=== PATIENT | male | born 1960 | race African-American/Black ===

== ENCOUNTER 2018-09-12 08:46 | Inpatient (IN) | payer MEDICAID ==
[~2018-09-12] VITALS: Ht 182.9 cm; Wt 102.5 kg
[~2018-09-12 08:46] MED LIST: BENA20TA10 PO; DIPH25CA83 PO; EMTR1TAB11 PO; ETRA200T PO; FOLI-43 PO; GABA600T PO; ISENTRESS PO; MEGE400O PO; MIRT15TA6 PO; NORVIR PO; OLAN10TA19 PO; PREZISTA PO; RALT400T PO; RISP2TAB22 PO; RITO100T PO; THIA100T75 PO; TRUVADA PO
[2018-09-12] MEDS ORDERED: MORPHINE SULFATE 4 MG/ML CPJ (NOT FOR IM USE) IV STA (09:31)
[2018-09-12 09:59] LABS: BASOPHILS % 0.3 % (0.0-2.0); EOSINOPHILS % 0.1 % (0.0-5.0); HEMATOCRIT. 38.8 % (42.0-52.0); HEMOGLOBIN. 13.4 g/dL (14.0-18.0); LYMPHOCYTES % 9.9 % (20.0-50.0); MEAN CORPUSCULAR HEMOGLOBIN 32.1 pg (28.0-32.0); MEAN CORPUSCULAR VOLUME 92.7 fL (80.0-94.0); MEAN PLATELET VOLUME 7.1 fl (7.4-10.4); NEUTROPHILS % 87.7 % (40.0-76.0); PLATELET 261 x1000/uL (130-400); RED BLOOD CELL COUNT 4.18 mill/uL (4.7-6.1)
[2018-09-12 10:04] LABS: CHLORIDE 107 mEq/L (98-107)
[2018-09-12 10:06] LABS: PROTHROMBIN TIME 10.3 sec (9.1-11.1)
[2018-09-12 10:11] LABS: CLARITY URINE CLEAR (CLEAR); COLOR URINE DARK YELLOW (YELLOW); KETONES URINE TRACE (NEGATIVE); LEUKOCYTE ESTERASE URINE NEGATIVE (NEGATIVE); NITRITE URINE NEGATIVE (NEGATIVE); OCCULT BLOOD URINE NEGATIVE (NEGATIVE); PROTEIN URINE 1+ (NEGATIVE); SPECIFIC GRAVITY URINE 1.031 (1.005-1.030)
[2018-09-12] MEDS ORDERED: POTASSIUM CHLORIDE INJ 40 MEQ in DEXT 5% WATER 250 ML IV SCH (10:30)
[2018-09-12] MEDS ORDERED: POTASSIUM CHLORIDE 20MEQ TABLET SR PO SCH (10:30)
[2018-09-12] MEDS ORDERED: MORPHINE SULFATE 4 MG/ML CPJ (NOT FOR IM USE) IV ONE (13:15)
[2018-09-12] MEDS: ACETAMINOPHEN 325MG TABLET PO PRN (17:54)
[2018-09-12] MEDS ORDERED: LEVOFLOXACIN 500MG PREMIX 100 ML IV SCH (18:33)
[2018-09-12] MEDS: HYDROMORPHONE HCL/PF 2MG/ML CPJ IV PRN ×2 (18:51→22:26)
[2018-09-12] MEDS: DEXT 5%/0.45% NACL KCL 10MEQ/L 1,000 ML IV SCH (18:55)
[2018-09-12] MEDS: METRONIDAZOLE 500 MG PREMIX 100 ML IV SCH (22:25)
[2018-09-13] MEDS: HYDROMORPHONE HCL/PF 2MG/ML CPJ IV PRN ×5 (02:47→20:33)
[2018-09-13 05:59] LABS: BASOPHILS % 0.4 % (0.0-2.0); EOSINOPHILS % 0.2 % (0.0-5.0); HEMATOCRIT. 39.6 % (42.0-52.0); HEMOGLOBIN. 13.5 g/dL (14.0-18.0); LYMPHOCYTES % 14.2 % (20.0-50.0); MEAN CORPUSCULAR HEMOGLOBIN 31.7 pg (28.0-32.0); MEAN CORPUSCULAR VOLUME 93.4 fL (80.0-94.0); MEAN PLATELET VOLUME 6.9 fl (7.4-10.4); MONOCYTES % 8.6 % (2.0-8.0); NEUTROPHILS % 76.6 % (40.0-76.0); PLATELET 208 x1000/uL (130-400); RED BLOOD CELL COUNT 4.24 mill/uL (4.7-6.1); RED CELL DISTRIBUTION WIDTH 12.8 % (11.6-14.6)
[2018-09-13 06:01] LABS: CHLORIDE 107 mEq/L (98-107)
[2018-09-13] MEDS: METRONIDAZOLE 500 MG PREMIX 100 ML IV SCH ×2 (06:07→16:29)
[2018-09-13] MEDS ORDERED: ENOXAPARIN 40MG/0.4ML SYR SUBCUT NR (07:30)
[2018-09-13 10:00] VITALS: BP 126/68
[2018-09-13] MEDS ORDERED: DEXTROSE 50% WATER 50ML SYRINGE IV PRN ×2 (10:45)
[2018-09-13] MEDS ORDERED: ENOXAPARIN 60MG/0.6ML SYR SUBCUT SCH (11:00)
[2018-09-13] MEDS: ACETAMINOPHEN 325MG TABLET PO PRN ×2 (11:03→17:15)
[2018-09-13 11:51] VITALS: BP 126/68
[2018-09-13] MEDS: INSULIN LISPRO 100 UNITS/ML SUBCUT SCH ×3 (11:51→20:32)
[2018-09-13] MEDS: BLOOD SUGAR DIAGNOSTIC STRIP TEST SCH ×3 (11:51→20:32)
[2018-09-13 12:00] VITALS: BP 117/72
[2018-09-13] MEDS ORDERED: METRONIDAZOLE 500 MG PREMIX 100 ML IV SCH (14:00)
[2018-09-13] MEDS ORDERED: PNEUMOCOCCAL 23-VAL P-SAC VAC 0.5 ML IM ONE (15:00)
[2018-09-13 16:00] VITALS: BP 128/76
[2018-09-13 16:30] VITALS: BP 128/76
[2018-09-13] MEDS ORDERED: LEVOFLOXACIN 500MG PREMIX 100 ML IV SCH (18:00)
[2018-09-13 20:00] VITALS: BP 113/70
[2018-09-13] MEDS ORDERED: VANCOMYCIN 1 G PREMIX 200 ML IV SCH (20:00)
[2018-09-13] MEDS: ENOXAPARIN 100MG/ML SYR SUBCUT SCH (20:31)
[2018-09-13] MEDS: DEXT 5%/0.45% NACL KCL 10MEQ/L 1,000 ML IV SCH (20:32)
[2018-09-14] VITALS: BP 104/74
[2018-09-14] MEDS: METRONIDAZOLE 500 MG PREMIX 100 ML IV SCH ×4 (00:51→21:24)
[2018-09-14] MEDS: HYDROMORPHONE HCL/PF 2MG/ML CPJ IV PRN ×6 (00:51→21:25)
[2018-09-14 04:00] VITALS: BP 109/66
[2018-09-14] MEDS: VANCOMYCIN 750 MG PREMIX 150 ML IV SCH ×3 (04:17→20:00)
[2018-09-14] MEDS: ONDANSETRON HCL 4MG/2ML INJ IV PRN (04:22)
[2018-09-14] MEDS: BLOOD SUGAR DIAGNOSTIC STRIP TEST SCH (07:10)
[2018-09-14] MEDS: INSULIN LISPRO 100 UNITS/ML SUBCUT SCH (07:25)
[2018-09-14] MEDS: ENOXAPARIN 100MG/ML SYR SUBCUT SCH ×2 (08:25→21:30)
[2018-09-14 08:29] VITALS: BP 107/62
[2018-09-14] MEDS ORDERED: ENOXAPARIN 40MG/0.4ML SYR SUBCUT SCH (09:00)
[2018-09-14 12:30] VITALS: BP 109/72
[2018-09-14] MEDS ORDERED: ENOXAPARIN 100MG/ML SYR SUBCUT SCH (14:27)
[2018-09-14 16:00] VITALS: BP 109/72
[2018-09-14] MEDS: ACETAMINOPHEN 325MG TABLET PO PRN (17:19)
[2018-09-14 20:00] VITALS: BP 109/69
[2018-09-14] MEDS: LEVOFLOXACIN 500MG PREMIX 100 ML IV SCH (21:24)
[2018-09-15] VITALS: BP 101/59
[2018-09-15] MEDS: ONDANSETRON HCL 4MG/2ML INJ IV PRN (00:51)
[2018-09-15] MEDS: HYDROMORPHONE HCL/PF 2MG/ML CPJ IV PRN ×5 (00:52→20:14)
[2018-09-15] MEDS: VANCOMYCIN 750 MG PREMIX 150 ML IV SCH (03:44)
[2018-09-15 04:00] VITALS: BP 116/67
[2018-09-15 04:09] LABS: CHLORIDE 103 mEq/L (98-107)
[2018-09-15 04:20] LABS: VANCOMYCIN TROUGH 9.3 ug/mL (5.0-10.0)
[2018-09-15] MEDS: METRONIDAZOLE 500 MG PREMIX 100 ML IV SCH ×2 (06:20→14:14)
[2018-09-15 08:00] VITALS: BP 114/73
[2018-09-15] MEDS: ENOXAPARIN 100MG/ML SYR SUBCUT SCH ×2 (09:01→20:22)
[2018-09-15 09:22] LABS: CHLORIDE 101 mEq/L (98-107)
[2018-09-15] MEDS ORDERED: POTASSIUM CHLORIDE 20MEQ TABLET SR PO NR (10:00)
[2018-09-15] MEDS: DOCUSATE SODIUM 100MG CAPSULE PO PRN (10:30)
[2018-09-15 12:00] VITALS: BP 122/80
[2018-09-15] MEDS: VANCOMYCIN 1 G PREMIX 200 ML IV SCH (12:54)
[2018-09-15 16:00] VITALS: BP 100/66
[2018-09-15] MEDS: ACETAMINOPHEN 325MG TABLET PO PRN (18:43)
[2018-09-15 20:00] VITALS: BP 126/87
[2018-09-15] MEDS: LEVOFLOXACIN 500MG PREMIX 100 ML IV SCH (20:44)
[2018-09-15] MEDS ORDERED: POTASSIUM CHLORIDE 20MEQ TABLET SR PO ONE (22:15)
[2018-09-16] VITALS: BP 118/62
[2018-09-16] MEDS: VANCOMYCIN 1 G PREMIX 200 ML IV SCH ×5 (00:36→22:34)
[2018-09-16] MEDS: METRONIDAZOLE 500 MG PREMIX 100 ML IV SCH ×4 (00:36→21:22)
[2018-09-16] MEDS: HYDROMORPHONE HCL/PF 2MG/ML CPJ IV PRN ×6 (01:05→22:33)
[2018-09-16 04:00] VITALS: BP 106/61
[2018-09-16] MEDS: DOCUSATE SODIUM 100MG CAPSULE PO PRN (06:18)
[2018-09-16 08:00] VITALS: BP 114/78
[2018-09-16] MEDS: ENOXAPARIN 100MG/ML SYR SUBCUT SCH ×2 (09:26→20:51)
[2018-09-16] MEDS ORDERED: LACTULOSE 20G/30ML UDC PO NR (11:00)
[2018-09-16] MEDS: POLYETHYLENE GLYCOL 3350 (17GM) 1 DOSE PACK PO SCH (11:58)
[2018-09-16 11:59] VITALS: BP 115/70
[2018-09-16 16:00] VITALS: BP 129/85
[2018-09-16 18:21] LABS: CHLORIDE 103 mEq/L (98-107)
[2018-09-16] MEDS: LEVOFLOXACIN 500MG PREMIX 100 ML IV SCH (19:56)
[2018-09-16 20:00] VITALS: BP 107/66
[2018-09-17] VITALS: BP 104/68
[2018-09-17] MEDS: HYDROMORPHONE HCL/PF 2MG/ML CPJ IV PRN ×6 (01:52→23:10)
[2018-09-17 04:00] VITALS: BP 112/66
[2018-09-17] MEDS: METRONIDAZOLE 500 MG PREMIX 100 ML IV SCH ×3 (05:02→21:20)
[2018-09-17 05:31] LABS: HEMATOCRIT. 35.5 % (42.0-52.0); MEAN CORPUSCULAR HEMOGLOBIN 31.2 pg (28.0-32.0); MEAN CORPUSCULAR VOLUME 92.2 fL (80.0-94.0); MEAN PLATELET VOLUME 7.2 fl (7.4-10.4); PLATELET 298 x1000/uL (130-400); RED BLOOD CELL COUNT 3.85 mill/uL (4.7-6.1); RED CELL DISTRIBUTION WIDTH 13.3 % (11.6-14.6)
[2018-09-17] MEDS: VANCOMYCIN 1 G PREMIX 200 ML IV SCH ×3 (05:40→22:16)
[2018-09-17 05:42] LABS: CHLORIDE 103 mEq/L (98-107)
[2018-09-17 05:52] LABS: VANCOMYCIN TROUGH 12.3 ug/mL (5.0-10.0)
[2018-09-17 08:00] VITALS: BP 90/64
[2018-09-17] MEDS: ENOXAPARIN 100MG/ML SYR SUBCUT SCH ×2 (09:00→21:20)
[2018-09-17] MEDS: POLYETHYLENE GLYCOL 3350 (17GM) 1 DOSE PACK PO SCH (09:00)
[2018-09-17] MEDS: DOCUSATE SODIUM 100MG CAPSULE PO PRN (09:00)
[2018-09-17 11:03] LABS: PLATELET ESTIMATE NORMAL
[2018-09-17 12:05] VITALS: BP 101/63
[2018-09-17 15:59] VITALS: BP 94/52
[2018-09-17 20:00] VITALS: BP 120/80
[2018-09-17] MEDS: LEVOFLOXACIN 500MG PREMIX 100 ML IV SCH (23:14)
[2018-09-18] VITALS: BP 106/72
[2018-09-18] MEDS: HYDROMORPHONE HCL/PF 2MG/ML CPJ IV PRN ×4 (03:03→12:53)
[2018-09-18 04:00] VITALS: BP 117/77
[2018-09-18] MEDS: METRONIDAZOLE 500 MG PREMIX 100 ML IV SCH (06:01)
[2018-09-18] MEDS: VANCOMYCIN 1 G PREMIX 200 ML IV SCH (06:36)
[2018-09-18 07:43] VITALS: BP 93/59
[2018-09-18] MEDS: POLYETHYLENE GLYCOL 3350 (17GM) 1 DOSE PACK PO SCH (08:28)
[2018-09-18] MEDS: ENOXAPARIN 100MG/ML SYR SUBCUT SCH (08:28)
[2018-09-18 12:00] VITALS: BP 104/64
[2018-09-18 12:36] VITALS: BP 104/64
[2018-09-18 12:53] VITALS: BP 104/64
== END 2018-09-18 14:17 | disposition home or self-care (01) | DRG 197 ==
LOC: ER 08:46 → 8WST 12:15 → EDBEDREQ 12:17 → SUPCPDRO 14:40 → ENRESERV 09-13 07:54
PROVIDERS: ADMIT Hospitalist; ATTEND Hospitalist
DX: I82.412 Acute embolism and thrombosis of left femoral vein (principal); M87.852 Other osteonecrosis, left femur; M16.12 Unilateral primary osteoarthritis, left hip; K52.9 Noninfective gastroenteritis and colitis, unspecified; G89.29 Other chronic pain; E87.6 Hypokalemia; E11.9 Type 2 diabetes mellitus without complications; Z96.643 Presence of artificial hip joint, bilateral; M10.9 Gout, unspecified; K59.00 Constipation, unspecified; G40.909 Epilepsy, unspecified, not intractable, without status epilepticus; I10 Essential (primary) hypertension; W18.30XA Fall on same level, unspecified, initial encounter; Z88.0 Allergy status to penicillin; Y93.89 Activity, other specified; Y92.89 Other specified places as the place of occurrence of the external cause; Y99.8 Other external cause status; Z79.899 Other long term (current) drug therapy; Z59.0 Homelessness
CPT/HCPCS: 36415; 71045; 73502; 74176; 80048; 80202; 82962; 83735; 83880; 84484; 93005; 93970; 96365; 96366; 97116; 97162; 99285; C1893; J1170; J1650; J1956; J2270; J2405; J3370; J3480; J3490; J7040; J7050; J7060

== ENCOUNTER 2018-12-12 08:36 | Inpatient (IN) | payer MEDICAID ==
[~2018-12-12] VITALS: Ht 188 cm; Wt 91.6 kg
[~2018-12-12 08:36] MED LIST changes: -BENA20TA10 PO; -FOLI-43 PO; -MIRT15TA6 PO; -OLAN10TA19 PO; -RISP2TAB22 PO
[2018-12-12] MEDS ORDERED: MORPHINE SULFATE 4 MG/ML CPJ (NOT FOR IM USE) IV STA (09:05)
[2018-12-12] MEDS ORDERED: ONDANSETRON HCL 4MG/2ML INJ IV STA (09:05)
[2018-12-12 09:52] LABS: BASOPHILS % 1.2 % (0.0-2.0); HEMATOCRIT. 36.4 % (42.0-52.0); HEMOGLOBIN. 12.4 g/dL (14.0-18.0); LYMPHOCYTES % 48.8 % (20.0-50.0); MEAN CORPUSCULAR HEMOGLOBIN 31.4 pg (28.0-32.0); MEAN CORPUSCULAR VOLUME 92.3 fL (80.0-94.0); MEAN PLATELET VOLUME 6.9 fl (7.4-10.4); MONOCYTES % 8.7 % (2.0-8.0); NEUTROPHILS % 38.3 % (40.0-76.0); PLATELET 480 x1000/uL (130-400); RED BLOOD CELL COUNT 3.94 mill/uL (4.7-6.1)
[2018-12-12 09:54] LABS: CHLORIDE 111 mEq/L (98-107)
[2018-12-12 13:34] LABS: INR 1.1; PROTHROMBIN TIME 10.9 sec (9.6-11.0)
[2018-12-12] MEDS ORDERED: MAGNESIUM/ALUMINUM HYDROXIDE/SIMETHICONE 30ML UDC PO PRN (14:15)
[2018-12-12] MEDS ORDERED: DEXTROSE 50% WATER 50ML SYRINGE IV PRN (14:15)
[2018-12-12] MEDS ORDERED: ONDANSETRON HCL 4MG/2ML INJ IV PRN (14:15)
[2018-12-12] MEDS ORDERED: MAGNESIUM HYDROXIDE 400MG/5ML 30ML UDC PO PRN (14:15)
[2018-12-12] MEDS ORDERED: DIPHENHYDRAMINE 50MG/ML VIAL IV PRN (14:15)
[2018-12-12] MEDS ORDERED: CLONIDINE 0.1MG TABLET PO PRN (14:15)
[2018-12-12] MEDS ORDERED: ACETAMINOPHEN 325MG TABLET PO PRN (14:15)
[2018-12-12] MEDS: HYDROCODONE/ACETAMINOPHEN 5/325MG TABLET PO PRN ×3 (14:40→22:04)
[2018-12-12 15:09] LABS: CLARITY URINE CLEAR (CLEAR); COLOR URINE YELLOW (YELLOW); KETONES URINE TRACE (NEGATIVE); LEUKOCYTE ESTERASE URINE NEGATIVE (NEGATIVE); NITRITE URINE NEGATIVE (NEGATIVE); OCCULT BLOOD URINE NEGATIVE (NEGATIVE); PROTEIN URINE NEGATIVE (NEGATIVE); SPECIFIC GRAVITY URINE 1.021 (1.005-1.030)
[2018-12-12] MEDS ORDERED: RITONAVIR 100 MG TABLET PO SCH (17:00)
[2018-12-12] MEDS ORDERED: INFLUENZA VIRUS VACCINE(AFLURIA) 0.5ML SYR IM ONE (17:15)
[2018-12-12 17:18] VITALS: BP 136/89
[2018-12-12] MEDS ORDERED: BLOOD SUGAR DIAGNOSTIC STRIP TEST SCH (17:20)
[2018-12-12] MEDS: INSULIN LISPRO 100 UNITS/ML SUBCUT SCH ×2 (17:26→21:00)
[2018-12-12 18:00] VITALS: BP 136/89
[2018-12-12] MEDS: ENOXAPARIN 40MG/0.4ML SYR SUBCUT SCH (18:01)
[2018-12-12 20:00] VITALS: BP 138/97
[2018-12-12] MEDS: RITONAVIR 100 MG TABLET PO SCH (20:23)
[2018-12-12] MEDS: FAMOTIDINE 20MG TABLET PO SCH (20:24)
[2018-12-12] MEDS: SODIUM CHLORIDE 0.9% INJ 3ML FLUSH IVF SCH (22:03)
[2018-12-12] MEDS: RALTEGRAVIR 400MG TABLET PO SCH (22:16)
[2018-12-13] VITALS: BP 126/79
[2018-12-13] MEDS ORDERED: LOPERAMIDE 2 MG/10 ML UDC PO PRN (02:00)
[2018-12-13 04:00] VITALS: BP 139/73
[2018-12-13] MEDS: SODIUM CHLORIDE 0.9% INJ 3ML FLUSH IVF SCH ×3 (06:40→21:39)
[2018-12-13] MEDS: INSULIN LISPRO 100 UNITS/ML SUBCUT SCH (07:34)
[2018-12-13 07:56] VITALS: BP 113/79
[2018-12-13] MEDS: RALTEGRAVIR 400MG TABLET PO SCH ×2 (08:25→17:23)
[2018-12-13] MEDS: RITONAVIR 100 MG TABLET PO SCH ×2 (08:25→17:23)
[2018-12-13] MEDS ORDERED: ACETAMINOPHEN WITH CODEINE 300/30MG TABLET PO PRN (08:45)
[2018-12-13] MEDS ORDERED: IOHEXOL-350 100 ML BOTTLE ONE (09:30)
[2018-12-13 11:34] VITALS: BP 124/67
[2018-12-13] MEDS ORDERED: HYDROCODONE/ACETAMINOPHEN 10/325MG TABLET PO PRN (13:45)
[2018-12-13 16:00] VITALS: BP 104/65
[2018-12-13] MEDS: ENOXAPARIN 40MG/0.4ML SYR SUBCUT SCH (17:23)
[2018-12-13 20:00] VITALS: BP 128/78
[2018-12-13] MEDS: FAMOTIDINE 20MG TABLET PO SCH (20:11)
[2018-12-13] MEDS: HYDROCODONE/ACETAMINOPHEN 5/325MG TABLET PO PRN (20:11)
[2018-12-14] VITALS: BP 120/71
[2018-12-14] MEDS: HYDROCODONE/ACETAMINOPHEN 5/325MG TABLET PO PRN (02:13)
[2018-12-14 04:00] VITALS: BP 120/76
[2018-12-14] MEDS: SODIUM CHLORIDE 0.9% INJ 3ML FLUSH IVF SCH ×2 (05:37→21:01)
[2018-12-14 08:00] VITALS: BP 104/74
[2018-12-14] MEDS: RALTEGRAVIR 400MG TABLET PO SCH ×2 (08:31→18:18)
[2018-12-14] MEDS: RITONAVIR 100 MG TABLET PO SCH ×2 (08:31→18:17)
[2018-12-14 12:00] VITALS: BP 121/74
[2018-12-14] MEDS: HYDROCODONE/APAP 7.5/325MG 1 TAB TABLET PO PRN ×2 (15:16→22:52)
[2018-12-14 16:00] VITALS: BP 111/83
[2018-12-14] MEDS: ENOXAPARIN 40MG/0.4ML SYR SUBCUT SCH (18:18)
[2018-12-14 20:00] VITALS: BP 117/75
[2018-12-14] MEDS: FAMOTIDINE 20MG TABLET PO SCH (20:48)
[2018-12-15] VITALS: BP 116/73
[2018-12-15 04:00] VITALS: BP 111/71
[2018-12-15] MEDS: SODIUM CHLORIDE 0.9% INJ 3ML FLUSH IVF SCH ×2 (06:00→21:47)
[2018-12-15] MEDS: HYDROCODONE/APAP 7.5/325MG 1 TAB TABLET PO PRN ×3 (06:59→21:46)
[2018-12-15 08:00] VITALS: BP_SYST 113; BP_SYST 121; BP_DIAS 71; BP_DIAS 74
[2018-12-15] MEDS: MULTIVITAMINS,THER W-MINERALS TABLET PO SCH (08:42)
[2018-12-15] MEDS: RITONAVIR 100 MG TABLET PO SCH ×2 (08:42→17:59)
[2018-12-15] MEDS: RALTEGRAVIR 400MG TABLET PO SCH ×2 (09:28→17:59)
[2018-12-15 12:06] VITALS: BP 121/74
[2018-12-15 16:13] VITALS: BP 108/68
[2018-12-15] MEDS: ENOXAPARIN 40MG/0.4ML SYR SUBCUT SCH (17:59)
[2018-12-15 20:00] VITALS: BP 117/78
[2018-12-15] MEDS: FAMOTIDINE 20MG TABLET PO SCH (20:59)
[2018-12-16] VITALS: BP 111/53
[2018-12-16 04:00] VITALS: BP 99/56
[2018-12-16] MEDS: SODIUM CHLORIDE 0.9% INJ 3ML FLUSH IVF SCH ×2 (06:00→13:27)
[2018-12-16] MEDS: HYDROCODONE/APAP 7.5/325MG 1 TAB TABLET PO PRN ×2 (06:31→17:36)
[2018-12-16 08:00] VITALS: BP 134/66
[2018-12-16] MEDS: MULTIVITAMINS,THER W-MINERALS TABLET PO SCH (09:35)
[2018-12-16] MEDS: RITONAVIR 100 MG TABLET PO SCH ×2 (09:36→17:35)
[2018-12-16] MEDS: RALTEGRAVIR 400MG TABLET PO SCH ×2 (09:43→17:35)
[2018-12-16 12:13] VITALS: BP 120/70
[2018-12-16 16:06] VITALS: BP 126/78
[2018-12-16] MEDS: ENOXAPARIN 40MG/0.4ML SYR SUBCUT SCH (17:52)
[2018-12-16 18:52] VITALS: BP 126/78
== END 2018-12-16 19:15 | DRG 384 ==
LOC: ER 08:36 → 6EST 13:09 → ENRESERV 13:16
PROVIDERS: ADMIT Internal Medicine; ATTEND Internal Medicine
DX: S70.02XA Contusion of left hip, initial encounter (principal); E11.9 Type 2 diabetes mellitus without complications; Z96.643 Presence of artificial hip joint, bilateral; I10 Essential (primary) hypertension; M19.90 Unspecified osteoarthritis, unspecified site; W19.XXXA Unspecified fall, initial encounter; Z86.718 Personal history of other venous thrombosis and embolism; Z59.0 Homelessness; Z82.49 Family history of ischemic heart disease and other diseases of the circulatory system; Z88.0 Allergy status to penicillin; Z79.899 Other long term (current) drug therapy; Y93.89 Activity, other specified; Y92.89 Other specified places as the place of occurrence of the external cause; Y99.8 Other external cause status
CPT/HCPCS: 36415; 71045; 71275; 73502; 82962; 83036; 84484; 87493; 93005; 93970; 96374; 96375; 97116; 97162; 99285; C1893; J1650; J2270; J2405; Q9967

== ENCOUNTER 2020-08-10 20:50 | Emergency (ER) | payer MEDICAID ==
[~2020-08-10] VITALS: Ht 185.4 cm; Wt 113.0 kg
[2020-08-10] MEDS ORDERED: MORPHINE SULFATE 4 MG/ML CPJ (NOT FOR IM USE) IV STA (21:21)
[2020-08-10] MEDS ORDERED: ONDANSETRON HCL 4MG/2ML INJ IV STA (21:21)
[2020-08-10] MEDS ORDERED: FAMOTIDINE 20MG/2ML VIAL IV STA (21:21)
[2020-08-10 21:53] LABS: HEMATOCRIT. 39.7 % (42.0-52.0); HEMOGLOBIN. 13.5 g/dL (14.0-18.0); MEAN CORPUSCULAR HEMOGLOBIN 31.2 pg (28.0-32.0); MEAN CORPUSCULAR VOLUME 91.9 fL (80.0-94.0); RED BLOOD CELL COUNT 4.32 mill/uL (4.7-6.1); RED CELL DISTRIBUTION WIDTH 13.7 % (11.6-14.6)
[2020-08-10 22:02] LABS: PROTHROMBIN TIME 10.9 sec (9.6-11.0)
[2020-08-10 22:11] LABS: CHLORIDE 108 mEq/L (98-107)
[2020-08-10 22:17] VITALS: BP 174/99
[2020-08-10 22:59] LABS: PLATELET ESTIMATE SLIGHTLY INCREASED
[2020-08-10 23:00] LABS: MEAN PLATELET VOLUME 7.4 fl (7.4-10.4); PLATELET 430 x1000/uL (130-400)
== END 2020-08-10 23:20 | disposition home or self-care (01) ==
LOC: ER 21:15
DX: R10.9 Unspecified abdominal pain (principal); E11.9 Type 2 diabetes mellitus without complications; B20 Human immunodeficiency virus [HIV] disease; I10 Essential (primary) hypertension; R56.9 Unspecified convulsions; F17.200 Nicotine dependence, unspecified, uncomplicated; Z88.0 Allergy status to penicillin; Z86.19 Personal history of other infectious and parasitic diseases
CPT/HCPCS: 36415; 80053; 83690; 85025; 85610; 93005; 96374; 96375; 99284; J2270; J2405; J3490

== ENCOUNTER 2020-08-30 09:09 | Emergency (ER) | payer MEDICAID ==
[~2020-08-30] VITALS: Ht 188 cm; Wt 104.0 kg
[2020-08-30] MEDS ORDERED: FAMOTIDINE 20MG/2ML VIAL IV STA (09:21)
[2020-08-30] MEDS ORDERED: ONDANSETRON HCL 4MG/2ML INJ IV STA (09:21)
[2020-08-30 09:56] LABS: BASOPHILS % 0.7 % (0.0-2.0); EOSINOPHILS % 2.2 % (0.0-5.0); HEMATOCRIT. 39.4 % (42.0-52.0); HEMOGLOBIN. 13.4 g/dL (14.0-18.0); LYMPHOCYTES % 51.8 % (20.0-50.0); MEAN CORPUSCULAR HEMOGLOBIN 32.1 pg (28.0-32.0); MEAN CORPUSCULAR VOLUME 94.5 fL (80.0-94.0); MEAN PLATELET VOLUME 7.1 fl (7.4-10.4); MONOCYTES % 6.3 % (2.0-8.0); PLATELET 286 x1000/uL (130-400); RED BLOOD CELL COUNT 4.17 mill/uL (4.7-6.1); RED CELL DISTRIBUTION WIDTH 14.1 % (11.6-14.6)
[2020-08-30 10:02] LABS: CHLORIDE 111 mEq/L (98-107)
[2020-08-30 10:05] LABS: ETHANOL BLOOD < 10 mg/dL; INR 0.9; PROTHROMBIN TIME 10.2 sec (9.6-11.0)
[2020-08-30 11:12] LABS: CLARITY URINE CLEAR (CLEAR); COLOR URINE YELLOW (YELLOW); KETONES URINE TRACE (NEGATIVE); LEUKOCYTE ESTERASE URINE NEGATIVE (NEGATIVE); NITRITE URINE NEGATIVE (NEGATIVE); OCCULT BLOOD URINE NEGATIVE (NEGATIVE); PROTEIN URINE NEGATIVE (NEGATIVE); SPECIFIC GRAVITY URINE 1.027 (1.005-1.030)
[2020-08-30] MEDS ORDERED: KETOROLAC 30MG/ML VIAL IV ONE (11:15)
[2020-08-30] MEDS ORDERED: LORAZEPAM 2MG/ML CPJ IV ONE (11:15)
[2020-08-30] MEDS ORDERED: OMEP20CA14 MT (11:54)
[2020-08-30 11:55] LABS: *AMPHETAMINES SCREEN URINE NEGATIVE (NEGATIVE); *BARBITURATES SCREEN URINE NEGATIVE (NEGATIVE); *BENZODIAZEPINES SCREEN URINE NEGATIVE (NEGATIVE)
[2020-08-30 11:56] LABS: OPIATES URINE SCREEN NEGATIVE (NEGATIVE)
[2020-08-30 11:58] LABS: CANNABINOID URINE SCREEN NEGATIVE (NEGATIVE); PHENCYCLIDINE URINE SCREEN PRESUMTIVE POSITIVE (NEGATIVE)
[2020-08-30 12:00] LABS: METHADONE URINE SCREEN NEGATIVE (NEGATIVE)
[2020-08-30 12:01] LABS: *COCAINE SCREEN URINE PRESUMTIVE POSITIVE (NEGATIVE)
[2020-08-30 14:02] VITALS: BP 112/82
== END 2020-08-30 14:07 | disposition home or self-care (01) ==
LOC: ER 09:24 → CANBEDREQ 15:40
DX: R10.13 Epigastric pain (principal); R07.89 Other chest pain; F14.10 Cocaine abuse, uncomplicated; F16.10 Hallucinogen abuse, uncomplicated; I10 Essential (primary) hypertension; E11.9 Type 2 diabetes mellitus without complications; Z88.0 Allergy status to penicillin; Z79.899 Other long term (current) drug therapy; Z86.59 Personal history of other mental and behavioral disorders
CPT/HCPCS: 36415; 71045; 74176; 80053; 80305; 80320; 81003; 83690; 83880; 84484; 85025; 85610; 93005; 96374; 96375; 99285; J1885; J2060; J2405; J3490; Z7610; G0480

== ENCOUNTER 2024-12-17 17:00 | Emergency (ER) | payer MEDICAID ==
[~2024-12-17] VITALS: Ht 182.9 cm; Wt 85.0 kg
[~2024-12-17 17:00] MED LIST changes: +OMEP20CA14 MT; -THIA100T75 PO; +[UNRECOGNIZED DRUG - CODE] PO
[2024-12-17 17:01] VITALS: O2SAT 99
[2024-12-17 18:27] LABS: BASOPHILS % 0.3 % (0.0-2.0); EOSINOPHILS % 0.2 % (0.0-5.0); HEMATOCRIT. 40.9 % (42.0-52.0); HEMOGLOBIN. 13.8 g/dL (14.0-18.0); MEAN CORPUSCULAR HEMOGLOBIN 32.2 pg (28.0-32.0); MEAN CORPUSCULAR HGB CONC 33.8 g/dL (31.0-37.0); MEAN CORPUSCULAR VOLUME 95.5 fL (80.0-94.0); MEAN PLATELET VOLUME 6.7 fl (7.4-10.4); MONOCYTES % 4.6 % (2.0-8.0); NEUTROPHILS % 81.9 % (40.0-76.0); PLATELET 359 x1000/uL (130-400); RED BLOOD CELL COUNT 4.28 mill/uL (4.7-6.1); RED CELL DISTRIBUTION WIDTH 12.5 % (11.6-14.6)
[2024-12-17 18:35] LABS: CHLORIDE 107 mEq/L (98-107); SODIUM 141 mEq/L (136-145)
[2024-12-17 18:36] LABS: CALCIUM 9.7 mg/dL (8.7-10.4); CARBON DIOXIDE 27 mEq/L (21-32)
[2024-12-17 18:41] LABS: GLUCOSE 107 mg/dL (70-105); UREA NITROGEN BLOOD 8 mg/dL (9-23)
[2024-12-17] MEDS: HYDROCODONE/ACETAMINOPHEN 10/325MG TABLET PO ONE (19:24)
[2024-12-17 19:39] LABS: PROTHROMBIN TIME 10.7 sec (9.6-11.0)
[2024-12-17 19:40] LABS: CARBON DIOXIDE 25 mEq/L (21-32); CHLORIDE 108 mEq/L (98-107); POTASSIUM 3.9 mEq/L (3.5-5.1); SODIUM 141 mEq/L (136-145)
[2024-12-17 19:41] LABS: CALCIUM 9.8 mg/dL (8.7-10.4)
[2024-12-17 19:46] LABS: CREATININE 0.9 mg/dL (0.6-1.3); GLUCOSE 105 mg/dL (70-105); UREA NITROGEN BLOOD 8 mg/dL (9-23)
[2024-12-17 19:47] LABS: ALANINE AMINOTRANSFERASE 29 IU/L (10-49); ALBUMIN 4.6 g/dL (3.2-4.8); ASPARTATE AMINOTRANSFERASE 35 IU/L (<34)
[2024-12-17 19:48] LABS: BILIRUBIN DIRECT 0.2 mg/dL (<=3.0); BILIRUBIN TOTAL 0.6 mg/dL (0.1-1.0)
[2024-12-17 19:49] LABS: TROPONIN I HIGH SENSITIVITY < 4 ng/L (3.0-53)
[2024-12-17 22:07] LABS: TROPONIN I HIGH SENSITIVITY < 4 ng/L (3.0-53)
[2024-12-18] MEDS ORDERED: TOPUD MT (00:18)
[2024-12-18 00:30] VITALS: BP 133/60; PULSE 88; RESP 12; TEMP 36.9; O2SAT 97
== END 2024-12-18 00:44 | disposition home or self-care (01) ==
LOC: ER 17:00
DX: R10.33 Periumbilical pain (principal); E11.9 Type 2 diabetes mellitus without complications; I10 Essential (primary) hypertension; Z79.624 Long term (current) use of inhibitors of nucleotide synthesis; Z79.899 Other long term (current) drug therapy; Z88.0 Allergy status to penicillin
CPT/HCPCS: 36415; 74176; 80048; 80076; 83735; 83880; 84484; 85025; 93005; 99285